=== PATIENT | female | born 1950 | race Caucasian/White ===

== ENCOUNTER 2023-06-19 13:44 | Outpatient (CLI) | payer MEDICARE ==
[2023-06-19 15:12] LABS: BASOPHILS # (AUTO) 0.1 X10'3 (0-0.2); BASOPHILS % (AUTO) 0.7 % (0-1); EOSINOPHILS # (AUTO) 0.2 X10'3 (0-0.9); EOSINOPHILS % (AUTO) 2.5 % (0-6); LYMPHOCYTES # (AUTO) 3.1 X10'3 (1.1-4.8); LYMPHOCYTES % (AUTO) 35.9 % (21-51); MEAN CORPUSCULAR HEMOGLOBIN 34.3 PG (27.0-31.0); MEAN CORPUSCULAR HGB CONC 34.1 g/dL (33.0-36.5); MEAN CORPUSCULAR VOLUME 100.5 FL (78-98); MEAN PLATELET VOLUME 8.4 FL (7.4-10.4); MONOCYTES # (AUTO) 0.7 X10'3 (0-0.9); MONOCYTES % (AUTO) 8.3 % (2-12); NEUTROPHILS # (AUTO) 4.5 X10'3 (1.8-7.7); NEUTROPHILS % (AUTO) 52.6 % (42-75); PRE OP HEMATOCRIT 42.6 % (35.0-45.0); PRE OP HEMOGLOBIN 14.5 g/dL (12.0-16.0); PRE OP PLATELET COUNT 379 X10'3 (140-440); PRE OP WHITE BLOOD COUNT 8.6 10'3 (4.8-10.8); RED BLOOD COUNT 4.23 X10'6 (4.20-5.60); RED CELL DISTRIBUTION WIDTH 13.7 % (11.5-14.5)
[2023-06-19 15:17] LABS: PRE OP PROTIME 11.2 SECONDS (9.0-12.0)
[2023-06-19 15:19] LABS: ALBUMIN 3.5 G/DL (3.4-5.0); ALBUMIN/GLOBULIN RATIO 0.8 (1.1-1.5); ALKALINE PHOSPHATASE 130 IU/L (46-116); BLOOD UREA NITROGEN 11 MG/DL (7-18); BUN/CREATININE RATIO 11.6 (10.0-20.0); CALCIUM 8.9 MG/DL (8.5-10.1); CHLORIDE 103 MMOL/L (99-107); CREATININE 0.95 MG/DL (0.40-0.90); PRE OP ALT 40 U/L (30-65); PRE OP ANION GAP 9 (8-16); PRE OP AST 23 U/L (10-37); PRE OP BILIRUB, TOTAL 0.4 MG/DL (0.0-1.0); PRE OP POTASSIUM 3.8 MMOL/L (3.4-5.1); PRE OP SODIUM 139 MMOL/L (135-145); TOTAL CARBON DIOXIDE 26.6 MMOL/L (24-32); TOTAL PROTEIN 7.8 G/DL (6.4-8.2); eGFR 58 ML/MIN
[2023-06-19 15:20] LABS: PRE OP GLUCOSE 99 MG/DL (70-104)
[2023-06-19] MEDS ORDERED: VALA500T PO (15:22)
[2023-06-19] MEDS ORDERED: [UNRECOGNIZED DRUG - OTHER] PO (15:22)
[2023-06-19] MEDS ORDERED: LIOT5TAB10 PO (15:22)
[2023-06-19] MEDS ORDERED: METO25TA6 PO (15:22)
[2023-06-19] MEDS ORDERED: LEVO100C4 PO (15:22)
== END 2023-06-19 23:59 | disposition home or self-care (01) ==
LOC: LAB 13:44 → EDSTATUS 06-22 10:45
PROVIDERS: ATTEND Surgery
DX: Z01.818 Encounter for other preprocedural examination (principal); N63.10 Unspecified lump in the right breast, unspecified quadrant; I48.91 Unspecified atrial fibrillation
CPT/HCPCS: 36415; 80053; 85025; 85610; 85730; 93005

== ENCOUNTER 2023-07-25 10:10 | Day surgery (SDC) | payer MEDICARE ==
[2023-07-25] VITALS (11 sets, daily range): BP systolic 113–167; BP diastolic 48–106; PULSE 80–107; RESP 12–16; TEMP 98; O2SAT 93–99
[~2023-07-25] VITALS: Ht 167.6 cm; Wt 127.1 kg
[~2023-07-25 10:10] MED LIST: LEVO100C4 PO; LIOT5TAB10 PO; METO25TA6 PO; VALA500T PO; [UNRECOGNIZED DRUG - OTHER] PO
[2023-07-25] MEDS ORDERED: normal saline 1000ml 1,000 ML IV SCH (10:35)
[2023-07-25] MEDS ORDERED: APIX5TAB3 PO (10:38)
[2023-07-25] MEDS ORDERED: FLEC50TA28 PO (10:38)
[2023-07-25 11:35] LABS: BASOPHILS % (AUTO) 0.6 % (0-1); EOSINOPHILS # (AUTO) 0.2 X10'3 (0-0.9); EOSINOPHILS % (AUTO) 2.8 % (0-6); HEMATOCRIT 44.9 % (35.0-45.0); HEMOGLOBIN 14.9 g/dl (12.0-16.0); LYMPHOCYTES # (AUTO) 2.6 X10'3 (1.1-4.8); LYMPHOCYTES % (AUTO) 30.3 % (21-51); MEAN CORPUSCULAR HEMOGLOBIN 33.4 PG (27.0-31.0); MEAN CORPUSCULAR HGB CONC 33.2 g/dL (33.0-36.5); MEAN CORPUSCULAR VOLUME 100.5 FL (78-98); MONOCYTES # (AUTO) 0.6 X10'3 (0-0.9); MONOCYTES % (AUTO) 7.3 % (2-12); PLATELET COUNT 393 X10'3 (140-440); RED BLOOD COUNT 4.46 X10'6 (4.20-5.60); RED CELL DISTRIBUTION WIDTH 13.7 % (11.5-14.5); WHITE BLOOD COUNT 8.4 X10'3 (4.5-11.0)
[2023-07-25 11:49] LABS: APTT 27 SECONDS (22-32); PROTHROMBIN TIME 10.7 SECONDS (9.0-12.0)
[2023-07-25 11:51] LABS: ALANINE AMINOTRANSFERASE 54 U/L (12-78); ALBUMIN 4.2 G/DL (3.4-5.0); ALBUMIN/GLOBULIN RATIO 0.9 (1.1-1.5); ALKALINE PHOSPHATASE 133 IU/L (46-116); ANION GAP 9 (8-16); ASPARTATE AMINO TRANSFERASE 15 U/L (10-37); BILIRUBIN,TOTAL 0.5 MG/DL (0.1-1.0); BLOOD UREA NITROGEN 15 MG/DL (7-18); CALCIUM 9.8 MG/DL (8.5-10.1); CHLORIDE 103 MMOL/L (99-107); CREATININE 0.94 MG/DL (0.40-0.90); POTASSIUM 3.7 MMOL/L (3.5-5.1); SODIUM 141 MMOL/L (135-145); TOTAL CARBON DIOXIDE 28.9 MMOL/L (24-32); eCRCL 52 ML/MIN; eGFR 59 ML/MIN
[2023-07-25 11:57] LABS: GLUCOSE 84 MG/DL (70-104)
[2023-07-25] MEDS: MIDAZolam 1mg/ml 10ml vial IV ONE (14:23)
[2023-07-25] MEDS: fentaNYL/PF 50MCG/1 ML 2ML syringe IV ONE (14:23)
== END 2023-07-25 14:50 | disposition home or self-care (01) ==
LOC: SSTAY O 10:10
PROVIDERS: ATTEND Student in an Organized Health Care Education/Training Program
DX: I48.91 Unspecified atrial fibrillation (principal); I10 Essential (primary) hypertension; E78.00 Pure hypercholesterolemia, unspecified; J45.909 Unspecified asthma, uncomplicated; F41.9 Anxiety disorder, unspecified; F32.A Depression, unspecified; K21.9 Gastro-esophageal reflux disease without esophagitis; M19.90 Unspecified osteoarthritis, unspecified site; Z85.3 Personal history of malignant neoplasm of breast; Z87.442 Personal history of urinary calculi; Z79.01 Long term (current) use of anticoagulants; Z79.890 Hormone replacement therapy; Z79.899 Other long term (current) drug therapy; Z91.041 Radiographic dye allergy status; Z88.2 Allergy status to sulfonamides; Z88.8 Allergy status to other drugs, medicaments and biological substances
CPT/HCPCS: 36415; 80053; 85025; 85610; 85730; 92960; 93005; J2250; J3010; J7030

== ENCOUNTER 2023-09-27 08:10 | Day surgery (SDC) | payer MEDICARE ==
[2023-09-22 14:29] LABS: BASOPHILS % (AUTO) 0.5 % (0-1); EOSINOPHILS # (AUTO) 0.2 X10'3 (0-0.9); EOSINOPHILS % (AUTO) 2.6 % (0-6); HEMATOCRIT 42.4 % (35.0-45.0); HEMOGLOBIN 14.3 g/dl (12.0-16.0); LYMPHOCYTES # (AUTO) 2.8 X10'3 (1.1-4.8); LYMPHOCYTES % (AUTO) 32.2 % (21-51); MEAN CORPUSCULAR HEMOGLOBIN 33.5 PG (27.0-31.0); MEAN CORPUSCULAR HGB CONC 33.7 g/dL (33.0-36.5); MEAN CORPUSCULAR VOLUME 99.4 FL (78-98); MEAN PLATELET VOLUME 7.9 FL (7.4-10.4); MONOCYTES # (AUTO) 0.7 X10'3 (0-0.9); NEUTROPHILS % (AUTO) 56.7 % (42-75); PLATELET COUNT 355 X10'3 (140-440); RED BLOOD COUNT 4.27 X10'6 (4.20-5.60); RED CELL DISTRIBUTION WIDTH 13.8 % (11.5-14.5); WHITE BLOOD COUNT 8.8 X10'3 (4.5-11.0)
[2023-09-22 14:46] LABS: ALANINE AMINOTRANSFERASE 52 U/L (12-78); ALBUMIN 3.7 G/DL (3.4-5.0); ALBUMIN/GLOBULIN RATIO 0.9 (1.1-1.5); ALKALINE PHOSPHATASE 121 IU/L (46-116); ANION GAP 10 (8-16); ASPARTATE AMINO TRANSFERASE 25 U/L (10-37); BILIRUBIN,TOTAL 0.4 MG/DL (0.1-1.0); BLOOD UREA NITROGEN 11 MG/DL (7-18); BUN/CREATININE RATIO 13.4 (10.0-20.0); CALCIUM 9.5 MG/DL (8.5-10.1); CHLORIDE 103 MMOL/L (99-107); CREATININE 0.82 MG/DL (0.40-0.90); POTASSIUM 3.7 MMOL/L (3.5-5.1); SODIUM 139 MMOL/L (135-145); TOTAL CARBON DIOXIDE 26.2 MMOL/L (24-32); TOTAL PROTEIN 7.9 G/DL (6.4-8.2); eGFR 69 ML/MIN
[2023-09-22 14:49] LABS: GLUCOSE 94 MG/DL (70-104)
[2023-09-26] MEDS: DOCUMENT DATE & TIME OF BETA-BLOCKER PO ONE (05:30)
[~2023-09-27] VITALS: Ht 167.6 cm; Wt 128.1 kg
[2023-09-27] MEDS: Cefazolin 3 GM/100ML NS IVPB 100 ML IV ONE (05:30)
[~2023-09-27 08:10] MED LIST changes: +APIX5TAB3 PO; +BUPIVACAINE liposomal/PF 13.3 MG/ML vial IM ONE; +METO-384 PO; -METO25TA6 PO; +VALA10002 PO; -VALA500T PO; -[UNRECOGNIZED DRUG - OTHER] PO; +methylene blue (5mg/ml) 50mg/10ml ampul IV ONE
[2023-09-27 08:20] VITALS: BP 152/98; PULSE 96; RESP 18; TEMP 99; O2SAT 94
[2023-09-27] MEDS: ringers solution, lacted 1,000 ML IV SCH (08:52)
[2023-09-27] MEDS: famotidine 20mg tablet PO ONE (08:52)
[2023-09-27] MEDS ORDERED: MIDAZolam 1mg/ml 10ml vial ONE (11:09)
[2023-09-27] MEDS ORDERED: fentaNYL/PF 50MCG/1 ML 2ML syringe ONE (11:09)
[2023-09-27] MEDS ORDERED: propofol inj 20 ML IV ONE (11:10)
[2023-09-27] MEDS ORDERED: LIDOcaine 2% (20mg/ml) 5ml vial ONE (11:10)
[2023-09-27] MEDS ORDERED: morphine 4 MG/ML inj SYRINge IV PRN (11:35)
[2023-09-27] MEDS ORDERED: ringers solution, lacted 1,000 ML IV SCH (11:35)
[2023-09-27] MEDS ORDERED: morphine 2 MG/ML inj. syringe IV PRN (11:35)
[2023-09-27] MEDS ORDERED: labetalol 20mg/4ml (5mg/ml) syringe IV PRN (11:35)
[2023-09-27] MEDS ORDERED: ondansetron/PF 4mg/2ml inj IV PRN (11:35)
[2023-09-27 11:52] VITALS: BP 136/98; PULSE 103; RESP 16; O2SAT 97
[2023-09-27] MEDS: LIDOcaine 1% (10mg/ml)w/preservative inj. 20ml MDV ONE (11:52)
[2023-09-27] MEDS: BUPIVAcaine/PF 2.5mg/ml (0.25%) 10ml vial ONE (11:53)
[2023-09-27 12:00] VITALS: BP 150/93; PULSE 89; RESP 11; O2SAT 96
[2023-09-27 12:10] VITALS: BP 131/85; PULSE 82; RESP 16; O2SAT 95
[2023-09-27 12:20] VITALS: BP 135/82; PULSE 85; RESP 14; O2SAT 96
[2023-09-27 12:32] VITALS: BP 138/86; PULSE 82; RESP 14; O2SAT 97
== END 2023-09-27 12:32 | disposition home or self-care (01) ==
LOC: PAS 08:10
PROVIDERS: ATTEND Surgery
DX: D17.79 Benign lipomatous neoplasm of other sites (principal); I10 Essential (primary) hypertension; E66.01 Morbid (severe) obesity due to excess calories; E03.9 Hypothyroidism, unspecified; G47.30 Sleep apnea, unspecified; Z87.891 Personal history of nicotine dependence; Z79.01 Long term (current) use of anticoagulants; Z79.890 Hormone replacement therapy; Z79.899 Other long term (current) drug therapy; Z90.49 Acquired absence of other specified parts of digestive tract; Z68.42 Body mass index [BMI] 45.0-49.9, adult; Z88.8 Allergy status to other drugs, medicaments and biological substances
CPT/HCPCS: 19101; 36415; 80053; 82948; 85025; A4215; A4618; A6258; A7000; J0690; J2001; J2250; J2704; J3010; J3490; J7030; J7120; Q9968; Z7506; Z7512; Z7610; 88304; C9290